=== PATIENT | female | born 1945 | race Caucasian/White ===

== ENCOUNTER → 2021-05-14 16:24 | Outpatient (CLI) | payer MEDICARE, OTHER, SELFPAY ==
--- NOTE | ~2021-05-14 | XR_ITS ---
EXAMINATION: XR cervical spine min 6V DATE: 05/14/2021 18:56 INDICATION: Neck pain. TECHNIQUE: 8 views of cervical spine including flexion and extension views were obtained. COMPARISON: None. FINDINGS: There is 2 mm anterolisthesis of C4 on C5 with mild focal kyphosis. There is no abnormal mo tion with flexion or extension. Vertebral body heights are normal. There is mildly decreased disc hei ght at C4-C5 and moderately decreased disc height at C5-C6 and C6-C7. 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 At C6-C7, there is moderate bilateral uncovert ebral joint osteoarthritis. There is mild neural foraminal stenosis on the right at C5-C6 and on the left at C6-C7. There is mild central canal stenosis at C5-C6 and C6-C7. No prevertebral soft tissue s welling. IMPRESSION: 1. Moderate cervical spondylosis. Reviewed, dictated and finalized at location A.
== END ==
DX: M99.01 Segmental and somatic dysfunction of cervical region (principal); M99.02 Segmental and somatic dysfunction of thoracic region; M79.12 Myalgia of auxiliary muscles, head and neck; M47.22 Other spondylosis with radiculopathy, cervical region
CPT/HCPCS: 72052

== ENCOUNTER → 2021-06-16 13:45 | Outpatient (CLI) | payer MEDICARE, OTHER, SELFPAY ==
--- NOTE | ~2021-06-16 | MM_ITS ---
EXAMINATION: MM screening roney BI w leanne HISTORY: Screening mammogram TECHNIQUE: Craniocaudal and mediolateral oblique 3-D tomosynthesis images were obtained and synthetic 2-D images were generated. CAD analysis was submitted and interpreted. COMPARISON: No prior mammogram is available for comparison at this institution. BREAST PARENCHYMAL COMPOSITION: There are scattered areas of fibroglandular density. FINDINGS: There is no evidence of suspicious mass, calcification, or architectural distortion to sugg est malignancy in either breast. There has been no suspicious interval change. IMPRESSION: 1. No mammographic evidence of malignancy. 2. Recommend routine screening mammography in one year. BI-RADS Category 1: Negative Reviewed, dictated and finalized at location A.
== END ==
DX: Z12.31 Encounter for screening mammogram for malignant neoplasm of breast (principal)
CPT/HCPCS: 77063; 77067